=== PATIENT | male | born 1995 | race Two or more races ===

== ENCOUNTER 2017-04-08 13:15 | Emergency (ER) | payer MEDICAID ==
[~2017-04-08] VITALS: Ht 172.7 cm; Wt 54.4 kg
[2017-04-08 13:25] VITALS: BP 109/88
[2017-04-08 13:50] VITALS: BP 109/88
--- NOTE | 2017-04-09 15:45 | Emergency Room Report ---
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 mother with work Denies being depressed Denies other medical problems Allergies: Coded Allergies: No Known Allergies (Unverified , 04/08/17) Patient History Past Medical History: none Past Surgical History: none Pertinent Family History: none Social History: Reports: smoking, drug use, Denies: alcohol use Immunizations: UTD Reviewed Nursing Documentation: PMH: Agreed, PSxH: Agreed Nursing Documentation-PMH Past Medical History: No History, Except For History Of Psychiatric Problem: Yes - anxiety, insonmia Review of Systems All Other Systems: negative except mentioned in HPI Physical Exam Vital Signs Date Time Temp Pulse Resp B/P (MAP) Pulse Ox O2 Delivery O2 Flow Rate FiO2 04/08/17 13:02 97.9 110 18 110/73 99 Room Air 04/08/17 13:25 98 Sp02 EP Interpretation: reviewed, normal General Appearance: normal inspection, well appearing, no apparent distress, alert, GCS 15, non-toxic Head: normocephalic, atraumatic Eyes: bilateral eye PERRL, bilateral eye EOMI ENT: normal ENT inspection, hearing grossly normal, normal pharynx, no angioedema, normal voice, TMs + canals normal, uvula midline, moist mucus membranes Neck: normal inspection, full range of motion, supple, thyroid normal, no meningismus, no bony tend Respiratory: normal inspection, lungs clear, normal breath sounds, no rhonchi, no respiratory distress, no retraction, no accessory muscle use, no wheezing, speaking full sentences Cardiovascular #1: regular rate, rhythm, no edema, no JVD, normal capillary refill Gastrointestinal: normal inspection, normal bowel sounds, non tender, soft, no mass, no peritonitis, non-distended, no guarding, no hernia, no pulsatile mass Genitourinary: no CVA tenderness Musculoskeletal: normal inspection, back normal, normal range of motion, no calf tenderness, pelvis stable, Elisabeth's Sign negative Neurologic: normal inspection, alert, oriented x3, responsive, manager traffic III-XII nml as tested, motor strength/tone normal, cerebellar normal, normal gait, speech normal Psychiatric: normal inspection, judgement/insight normal, memory normal, mood/ affect normal, no suicidal/homicidal ideation, no delusions Skin: normal inspection, normal color, no rash Lymphatic: normal inspection, no adenopathy Medical Decision Making Diagnostic Impression: Primary Impression: Overdose Qualified Codes: T50.904A - Poisoning by unspecified drugs, medicaments and biological substances, undetermined, initial encounter ER Course 21-year-old male brought in for suspected overdose Patient's vitals are stable, afebrile Patient is alert and oriented x3, has capacity per decision-making I doubt patient has overdose at this time I had a long discussion with patient, Joaquim Stapleton present Patient refusing any further laboratory or urinalysis at this time States he just wants to go home Denies any SI or HI Not having any AVH I provided patient with information on where to go for detox He did not want to go directly from the ER today I Advised him of taking medications that are not prescribed to him All this was done without patient's parents present, as per his legal right he understands to return to ER for any concerns or if he feels that withdrawal from heroin is serious and requiring emergency attention patient signed AMA form, placed in chart Last Vital Signs Date Time Temp Pulse Resp B/P (MAP) Pulse Ox O2 Delivery O2 Flow Rate FiO2 04/08/17 13:50 97.9 68 19 109/88 98 Room Air 98 Status: improved Disposition: AGAINST MEDICAL ADVICE Condition: Improved Referrals: [facility]ERR[facility] (PCP) Patient Instructions: Medical Screening Exam Additional Instructions: - Only take medications that are prescribed to you MARLON BRADFORD M.D. Apr 09, 2017 15:45
== END 2017-04-08 15:00 | disposition left against medical advice (07) ==
LOC: EDBD 13:15 → EMR 14:32
DX: T42.4X1A Poisoning by benzodiazepines, accidental (unintentional), initial encounter (principal); F41.9 Anxiety disorder, unspecified; G47.00 Insomnia, unspecified
CPT/HCPCS: 99282

== ENCOUNTER 2017-08-25 19:17 | Emergency (ER) | payer MEDICAID ==
[~2017-08-25] VITALS: Ht 160 cm; Wt 59.0 kg
[2017-08-25 19:25] VITALS: BP 121/71
[2017-08-25] MEDS ORDERED: VISTARIL50 MG ORAL (19:32)
[2017-08-25] MEDS ORDERED: SERTRALINE HCL100 MG PO (19:32)
[2017-08-25] MEDS ORDERED: LORazepam Inj 2mg/ml 1ml IM ONE (20:15)
[2017-08-25] MEDS ORDERED: DiphenhydrAMINE 50mg/ml Inj IM ONE (20:30)
[2017-08-25] MEDS ORDERED: Sertraline 50mg tab ORAL ONE (21:00)
--- NOTE | 2017-08-25 21:13 | Emergency Room Report ---
History of Present Illness General Chief Complaint: Neck Pain Source: Patient Present Illness HPI 21-year-old male presents to the emergency department complaining of shaking, muscle spasms, insomnia 2 days. Patient reports he has not slept at all. Patient reports feeling very anxious he has a history of anxiety and sleep problems. 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 Patient denies new medications and states he is currently not taking any medicine. After further investigation it appears patient is prescribed Risperdal and sertraline for which he self discontinued on his own 3 days ago abruptly. Pt. reports moderate neck muscle spasms and as though his neck "gets stuck turned to the side" Denies CP, Palpitations, LOC, AMS, dizziness, Changes in Vision, Sensation, paresthesias, or a sudden severe headache. Allergies: Coded Allergies: No Known Allergies (Unverified , 04/08/17) Patient History Past Medical History: see triage record Past Surgical History: none Pertinent Family History: none Reviewed Nursing Documentation: PMH: Agreed; PSxH: Agreed Nursing Documentation-PMH History Of Psychiatric Problem: Yes - ANXIETY Review of Systems All Other Systems: negative except mentioned in HPI Physical Exam Vital Signs Date Time Temp Pulse Resp B/P (MAP) Pulse Ox O2 Delivery O2 Flow Rate FiO2 08/25/17 19:25 98.1 97 18 121/71 97 Room Air 98.1 Medical Decision Making PA Attestation Dr. strauss is my supervising Physician whom patient management has been discussed with. Diagnostic Impression: Primary Impression: Drug withdrawal syndrome Qualified Codes: F19.939 - Other psychoactive substance use, unspecified with withdrawal, unspecified Additional Impression: Acute anxiety ER Course 21-year-old male presents to the emergency department complaining of shaking, muscle spasms, insomnia 2 days. Patient reports he has not slept at all. Patient reports feeling very anxious he has a history of anxiety and sleep problems. 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 Patient denies new medications and states he is currently not taking any medicine. After further investigation it appears patient is prescribed Risperdal and sertraline for which he self discontinued on his own 3 days ago abruptly. Pt. reports moderate neck muscle spasms and as though his neck "gets stuck turned to the side" Denies CP, Palpitations, LOC, AMS, dizziness, Changes in Vision, Sensation, paresthesias, or a sudden severe headache. Ddx considered but are not limited to anxiety, MA, PE, asthma, thyroid storm, hyperthyroid, EPS, and a depressant withdrawal syndrome Vital signs: are WNL, pt. is afebrile H&PE are most consistent with anxiety reaction or medication reaction. ORDERS: none required at this time, the diagnosis is clinical ED INTERVENTIONS: -Ativan IM -Benadryl IM -Sertraline 50mg PO -Patient has stable vital signs within normal limits throughout ED visit he is clinically improving after above interventions. Discussed with patient as well as mother who is bedside that his symptoms are most likely due to self abrupt discontinuation of his psychiatric medications. Patient is to return home and restart his previously prescribed medications as directed mother states he has a follow-up appointment with his psychiatrist on Tuesday. Patient is given strict ED return precautions both pt and mother who is bedside verbalizes understanding and agreement with proposed treatment plan. Patient is also provided with [facility] urgent care information. DISCHARGE: At this time pt. is stable for d/c to home. Will provide printed patient care instructions, and any necessary prescriptions. Care plan and follow up instructions have been discussed with the patient prior to discharge. Last Vital Signs Date Time Temp Pulse Resp B/P (MAP) Pulse Ox O2 Delivery O2 Flow Rate FiO2 08/25/17 19:25 98.1 97 18 121/71 97 Room Air 98.1 Disposition: HOME, SELF-CARE Condition: Stable Patient Instructions: Medical Screening Exam Additional Instructions: Take previously prescribed medications as directed. Follow up with you primary prescribing provider ( psychiatrist) in 3-days, even if your symptoms have resolved. Do not abruptly self discontinue her prescribed medications this needs to be done under physician supervision. Review [facility] URGENT C[facility] INFORMATION. Return sooner to ED if new symptoms occur, or current symptoms become worse. - Please note that this Emergency Department Report was dictated using [employer] technician technology software, occasionally this can lead to erroneous entry secondary to interpretation by the dictation equipment. Olivia Owens August 25, 2017 21:13
[2017-08-25] MEDS ORDERED: BENADRYL ALLERG25 M1 PO (21:14)
[2017-08-25 21:22] VITALS: BP 121/71
== END 2017-08-25 21:30 | disposition home or self-care (01) ==
LOC: EMR 21:28
DX: F11.23 Opioid dependence with withdrawal (principal); F41.9 Anxiety disorder, unspecified; G47.00 Insomnia, unspecified
CPT/HCPCS: 96372; 99283; J1200

== ENCOUNTER 2018-04-22 19:27 | Emergency (ER) | payer BC, MEDICAID ==
[~2018-04-22] VITALS: Ht 160 cm; Wt 65.8 kg
[~2018-04-22 19:27] MED LIST: BENADRYL ALLERG25 M1 PO; SERTRALINE HCL100 MG PO; VISTARIL50 MG ORAL
[2018-04-22] MEDS ORDERED: ZYPREXA7.5 MG ORAL (19:39)
--- NOTE | 2018-04-22 19:40 | NUR ---
ED Nurse Note: Pt walked into ER with a slow gait stating that he "fell down a couple of stairs" pt stated he has pain on hips and head. bruse noted on R side of face. event happend 3 hrs prior to Triag. pt stated he lost contiousness for about 20 min. fall was witnessed by pt mother. no loss of memory after pt woke up from fall, he just had a bad head ach.
[2018-04-22 19:45] VITALS: BP 117/68
[2018-04-22] MEDS ORDERED: Norco 5mg/325mg tab PO ONE (20:00)
--- NOTE | 2018-04-22 20:00 | NUR ---
ED Nurse Note: Pt went to CT scan.
--- NOTE | 2018-04-22 20:30 | NUR ---
ED Nurse Note: Pt back from CT scan, AO x 4times.
--- NOTE | 2018-04-22 20:51 | Diagnostic Imaging Report ---
EXAM: CT Head Without Intravenous Contrast CLINICAL HISTORY: PAIN TECHNIQUE: Axial computed tomography images of the head/brain without intravenous contrast. CTDI is 73 mGy and DLP is 1372 mGy-cm. One or more of the following dose reduction techniques were used: automated exposure control, adjustment of the mA and/or kV according to patient size, use of iterative reconstruction technique. COMPARISON: No relevant prior studies available. FINDINGS: Brain: Unremarkable. No hemorrhage. No significant white matter disease. No edema. Ventricles: Unremarkable. No ventriculomegaly. Bones/joints: Unremarkable. No acute fracture. Soft tissues: Unremarkable. Sinuses: Unremarkable as visualized. No acute sinusitis. Mastoid air cells: Unremarkable as visualized. No mastoid effusion. IMPRESSION: Unremarkable unenhanced CT head.
--- NOTE | 2018-04-22 20:52 | Diagnostic Imaging Report ---
EXAM: CT Maxillofacial Without Intravenous Contrast CLINICAL HISTORY: PAIN TECHNIQUE: Axial computed tomography images of the face without intravenous contrast. CTDI is 28 mGy and DLP is 607 mGy-cm. One or more of the following dose reduction techniques were used: automated exposure control, adjustment of the mA and/or kV according to patient size, use of iterative reconstruction technique. COMPARISON: No relevant prior studies available. FINDINGS: Bones/joints: No acute fracture. Soft tissues: Unremarkable. Orbits: Unremarkable. Sinuses: Unremarkable. No air-fluid levels. IMPRESSION: Unremarkable study.
--- NOTE | 2018-04-22 21:00 | NUR ---
ED Nurse Note: Pt cleared DC by DEBRA. Pt is AO x 4times, VSS, on room air no distress. Belongings given to Pt. DC and Meds instructions given to Pt, Pt understood well. ID bend removed. Pt walked out unit with steady gait with parents. Parents will drive home.
--- NOTE | 2018-04-22 21:01 | Diagnostic Imaging Report ---
EXAM: XR Right Hip With Pelvis When Performed, 1 View CLINICAL HISTORY: PAIN TECHNIQUE: Frontal view of the right hip, with pelvis when performed. COMPARISON: No relevant prior studies available. FINDINGS: Bones/joints: No displaced fracture. 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 Consider contralateral imaging if there is clinical concern. No dislocation. Soft tissues: Unremarkable. IMPRESSION: 1. No displaced fracture. 2. 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 Consider contralateral imaging if there is clinical concern. 3. Otherwise unremarkable study.
--- NOTE | 2018-04-22 21:01 | Diagnostic Imaging Report ---
EXAM: XR Right Femur, 2 Views CLINICAL HISTORY: PAIN TECHNIQUE: Frontal and lateral views of the right femur. COMPARISON: No relevant prior studies available. FINDINGS: Bones/joints: No fracture. Please refer to dedicated right hip imaging further discussion of possibly anomalous right hip anatomy. No dislocation. Soft tissues: Unremarkable. IMPRESSION: 1. No fracture. 2. Please refer to dedicated right hip imaging further discussion of possibly anomalous right hip anatomy. 3. Otherwise unremarkable study.
--- NOTE | 2018-04-22 21:03 | Diagnostic Imaging Report ---
EXAM: XR Left Hip With Pelvis When Performed, 1 View CLINICAL HISTORY: PAIN TECHNIQUE: Frontal view of the left hip, with pelvis when performed. COMPARISON: Same date right hip radiographs FINDINGS: Bones/joints: No displaced fracture. Probably developmental and incidental anatomy of the femoral head/neck region versus old healed slipped capital femoral epiphyses. This is of unlikely clinical significance. No dislocation. Soft tissues: Unremarkable. IMPRESSION: 1. No displaced fracture. 2. Probably developmental and incidental anatomy of the femoral head/neck region versus old healed slipped capital femoral epiphyses. This is of unlikely clinical significance. 3. Otherwise unremarkable study.
[2018-04-22 21:08] VITALS: BP 123/81
[2018-04-22] MEDS ORDERED: Ketorolac 30mg Inj IM ONE (21:15)
[2018-04-22] MEDS ORDERED: NORCO 5-325 TA1 EACH ORAL (21:19)
[2018-04-22] MEDS ORDERED: IBUPROFEN600 MG ORAL (21:19)
--- NOTE | 2018-04-23 15:13 | Emergency Room Report ---
History of Present Illness General Chief Complaint: Multiple Trauma/Fall Source: Patient Present Illness HPI 22-year-old male presents ED for evaluation. Patient complaining of headache and hip and leg pain status post fall. States he slipped and tripped down some stairs today. Happened about 3 hours prior to arrival. States he hit his head with LOC. Bruising on the side of his head. Complaining of headache, hip pain and right leg pain. Throbbing, 8 out of 10, nonradiating. Denies any other injuries. Denies any neck pain. Denies any nausea or vomiting. No other aggravating relieving factors. Denies any other associated symptoms Allergies: Coded Allergies: No Known Allergies (Unverified , 04/08/17) Patient History Past Medical History: none Past Surgical History: none Pertinent Family History: none Social History: Denies: smoking, alcohol use, drug use Immunizations: UTD Reviewed Nursing Documentation: PMH: Agreed; PSxH: Agreed Nursing Documentation-PMH Past Medical History: No Stated History Review of Systems All Other Systems: negative except mentioned in HPI Physical Exam Vital Signs Date Time Temp Pulse Resp B/P (MAP) Pulse Ox O2 Delivery O2 Flow Rate FiO2 04/22/18 19:31 97.3 77 18 117/68 99 Room Air Sp02 EP Interpretation: reviewed, normal General Appearance: no apparent distress, alert, GCS 15, non-toxic Head: normocephalic, other - bruising R periorbital Eyes: bilateral eye normal inspection, bilateral eye PERRL, bilateral eye EOMI ENT: hearing grossly normal, normal pharynx, no angioedema, normal voice Neck: full range of motion, no bony tend, supple/symm/no masses Respiratory: chest non-tender, lungs clear, normal breath sounds, speaking full sentences Cardiovascular #1: regular rate, rhythm, no edema Cardiovascular #2: 2+ carotid (R), 2+ carotid (L), 2+ radial (R), 2+ radial (L) , 2+ dorsalis pedis (R), 2+ dorsalis pedis (L) Gastrointestinal: normal bowel sounds, non tender, soft, non-distended, no guarding, no rebound Rectal: deferred Genitourinary: normal inspection, no CVA tenderness Musculoskeletal: back normal, gait/station normal, normal range of motion, tender - pelvis, R femur Neurologic: alert, oriented x3, responsive, motor strength/tone normal, sensory intact, speech normal Psychiatric: judgement/insight normal, memory normal, mood/affect normal, no suicidal/homicidal ideation Reflexes: 3+ bicep (R), 3+ bicep (L), 3+ tricep (R), 3+ tricep (L), 3+ knee (R) , 3+ knee (L) Skin: normal color, no rash, warm/dry, well hydrated Lymphatic: no adenopathy Medical Decision Making Diagnostic Impression: Primary Impression: Multiple injuries due to trauma ER Course Hospital Course 22-year-old M presents to ED complaining of headache, pelvic and RLE pain s/p fall down stairs. +LOC Differential diagnoses include: Fracture, dislocation, sprain, contusion Clinical course Patient placed on stretcher. After initial history and physical, I ordered pain medications and CT and xrays CT of head and facial bones unremarkable X-rays of bilateral hip, right femur unremarkable Discussed findings with patient and family. Reassurance given. Patient can be discharged to home. We'll prescribe analgesics. Patient has a PMD to follow- up with Diagnosis - multiple injuries due to trauma Stable and discharged to home with prescription for Motrin, [place]. apply ice, keep elevated. weight bear as tolerated. Followup with PMD. Return to ED if symptoms recur or worsen Other X-Ray Diagnostic Results Other X-Ray Diagnostic Results #1: X-Ray ordered: R hip # of Views/Limited Vs Complete: 2 View Indication: Pain EP Interpretation: Yes Interpretation: no dislocation, no soft tissue swelling, no fractures Impression: No acute disease Electronically Signed by: Electronically signed by Andrez Huizar MD Other X-Ray Diagnostic Results #2: X-Ray ordered: L hip # of Views/Limited Vs Complete: 2 View Indication: Pain EP Interpretation: Yes Interpretation: no dislocation, no soft tissue swelling, no fractures Impression: No acute disease Electronically Signed by: Electronically signed by Andrez Huizar MD Other X-Ray Diagnostic Results #3: X-Ray ordered: R femur # of Views/Limited Vs Complete: 3 View Indication: Pain EP Interpretation: Yes Interpretation: no dislocation, no soft tissue swelling, no fractures Impression: No acute disease Electronically Signed by: Electronically signed by Andrez Huizar MD CT/MRI/US Diagnostic Results CT/MRI/US Diagnostic Results #1: Imaging Test Ordered: CT Head Impression no acute process CT/MRI/US Diagnostic Results #2: Imaging Test Ordered: CT Facial Bones Impression no acute process Last Vital Signs Date Time Temp Pulse Resp B/P (MAP) Pulse Ox O2 Delivery O2 Flow Rate FiO2 04/22/18 21:08 97.6 89 18 123/81 100 Room Air Status: improved Disposition: HOME, SELF-CARE Condition: Stable Scripts Hydrocodone Bit/Acetaminophen 5-325* (NORCO 5-325*) 1 Each Tablet 1 TAB ORAL Q6H PRN for For Pain, #10 TAB 0 Refills Prov: Andrez Huizar MD 04/22/18 Ibuprofen* (MOTRIN*) 600 Mg Tablet 600 MG ORAL Q8H PRN for For Pain, #30 TAB 0 Refills Prov: Andrez Huizar MD 04/22/18 Referrals: [facility],REFERRING (PCP) Patient Instructions: Hip Pain, Head Injury, Adult, [id number] Andrez Huizar MD Apr 23, 2018 15:13
== END 2018-04-22 21:44 | disposition home or self-care (01) ==
LOC: EMR 20:00
DX: S00.93XA Contusion of unspecified part of head, initial encounter (principal); M25.551 Pain in right hip; M25.552 Pain in left hip; M79.661 Pain in right lower leg; R55 Syncope and collapse; R51 Headache; W10.9XXA Fall (on) (from) unspecified stairs and steps, initial encounter; Y92.9 Unspecified place or not applicable
CPT/HCPCS: 70450; 70486; 73502; 73552; 96372; 99284; J1885